=== PATIENT | female | born 1955 | race Caucasian/White ===

== ENCOUNTER 2023-01-31 07:28 | Emergency (ER) | payer MEDICARE, OTHER ==
[2023-01-31] MEDS: Acetaminophen 325 MG Tab PO ONE (08:46)
[2023-01-31] MEDS: Acetaminophen 325 MG Tab ONE (09:49)
== END 2023-01-31 11:00 | disposition home or self-care (01) ==
LOC: LB.ED 07:28
DX: M25.531 Pain in right wrist (principal); J44.9 Chronic obstructive pulmonary disease, unspecified; K21.9 Gastro-esophageal reflux disease without esophagitis; Z88.1 Allergy status to other antibiotic agents; Z88.5 Allergy status to narcotic agent; Z88.2 Allergy status to sulfonamides; Z88.8 Allergy status to other drugs, medicaments and biological substances; Z79.899 Other long term (current) drug therapy; W18.09XA Striking against other object with subsequent fall, initial encounter
CPT/HCPCS: 29125; 70450; 71250; 72125; 73030-RT; 73070-RT; 73110-50; 73560-50; 74176; 99284; A9270-GY